=== PATIENT | female | born 1960 | race African-American/Black ===

== ENCOUNTER 2017-04-25 11:58 | Emergency (ER) | payer BC ==
--- NOTE | 2017-04-25 13:15 | ER Document Report ---
ED Respiratory Problem - General Chief Complaint: Congestion Stated Complaint: COUGH,CONGESTION Time Seen by Provider: 04/25/17 13:15 Mode of Arrival: Ambulatory Information source: Patient Notes: 57-year-old female presents to ED for complaint of chest congestion cough. She states she went to the urgent care and they did x-ray and sent her to the emergency room with a disc of her chest x-ray. I have no one to read a disc though chest x-ray was repeated. TRAVEL OUTSIDE OF THE [place] IN LAST 30 DAYS: No - HPI Patient complains to provider of: Cough, Short of breath Onset: Other - Been going on for over a week but it is gotten much worse Duration: Continuous Initiating Event: URI Quality of pain: Achy Severity: Mild Pain Level: 1 Context: denies: Smoker - Former Chest pain/discomfort: Tightness Cough: Nonproductive Sputum amount: None Associated symptoms: Congestion, Cough, Fever, PND, Runny nose Similar symptoms previously: Yes Recently seen / treated by doctor: Yes - Related Data Allergies/Adverse Reactions: Sulfa (Sulfonamide Antibiotics) Allergy (Verified 04/25/17 12:01) Past Medical History - General Information source: Patient - Social History Smoking Status: Former Smoker Cigarette use (# per day): No Chew tobacco use (# tins/day): No Smoking Education Provided: No Frequency of alcohol use: Social Drug Abuse: None Occupation: None Lives with: Alone Family History: Arthritis, Hypertension, Malignancy, Thyroid Disfunction Patient has suicidal ideation: No Patient has homicidal ideation: No - Past Medical History Cardiac Medical History: Reports: None Pulmonary Medical History: Reports: Other - Interstitial lung disease chronic pneumonitis EENT Medical History: Reports: None Neurological Medical History: Reports: None Endocrine Medical History: Reports: Hx Hypothyroidism Renal/ Medical History: Reports: None Malignancy Medical History: Reports: None GI Medical History: Reports: None Musculoskeltal Medical History: Reports Hx Musculoskeletal Deformity, Reports Hx Musculoskeletal Trauma Skin Medical History: Reports None Psychiatric Medical History: Reports: None Traumatic Medical History: Reports: Hx Fractures - Knee Infectious Medical History: Reports: None Past Surgical History: Reports: Hx Orthopedic Surgery - Surgery knee - Immunizations Immunizations up to date: Yes Hx Diphtheria, Pertussis, Tetanus Vaccination: Yes Review of Systems - Review of Systems Constitutional: No symptoms reported EENT: No symptoms reported Cardiovascular: No symptoms reported Respiratory: Cough, Short of breath Gastrointestinal: No symptoms reported Genitourinary: No symptoms reported Female Genitourinary: No symptoms reported Musculoskeletal: No symptoms reported Skin: No symptoms reported Hematologic/Lymphatic: No symptoms reported Neurological/Psychological: No symptoms reported -: Yes All other systems reviewed and negative Physical Exam - Vital signs Vitals: Temp Pulse Resp BP Pulse Ox 98.3 F 102 H 16 159/90 H 99 04/25/17 12:01 04/25/17 12:01 04/25/17 12:01 04/25/17 12:01 04/25/17 12:01 Interpretation: Normal - General General appearance: Appears well, Alert - HEENT Head: Normocephalic, Atraumatic Eyes: Normal Pupils: PERRL - Respiratory Respiratory status: No respiratory distress Chest status: Nontender Breath sounds: Nonproductive cough Chest palpation: Normal - Cardiovascular Rhythm: Regular Heart sounds: Normal auscultation Murmur: No - Abdominal Inspection: Normal Distension: No distension Bowel sounds: Normal Tenderness: Nontender Organomegaly: No organomegaly - Back Back: Normal, Nontender - Extremities General upper extremity: Normal inspection, Nontender, Normal color, Normal ROM , Normal temperature General lower extremity: Normal inspection, Nontender, Normal color, Normal ROM , Normal temperature, Normal weight bearing. No: Fabiana's sign - Neurological Neuro grossly intact: Yes Cognition: Normal Orientation: AAOx4 Lien Coma Scale Eye Opening: Spontaneous [place] Coma Scale Verbal: Oriented Lien Coma Scale Motor: Obeys Commands Lien Coma Scale Total: 15 Speech: Normal Motor strength normal: LUE, RUE, LLE, RLE Sensory: Normal - Psychological Associated symptoms: Normal affect, Normal mood - Skin Skin Temperature: Warm Skin Moisture: Dry Skin Color: Normal Course - Re-evaluation Re-evalutation: 04/25/17 22:[address] Harris and with Dr. Caruso. Dr. Caruso stated that he would see the patient tomorrow. Copy of the chest x-ray sent with patient. Patient sent home with an albuterol inhaler. - Vital Signs Vital signs: Temp Pulse Resp BP Pulse Ox 99.6 F 62 20 124/74 96 04/25/17 16:49 04/25/17 16:49 04/25/17 16:49 04/25/17 16:49 04/25/17 16:49 - Diagnostic Test Radiology reviewed: Image reviewed, Reports reviewed Discharge - Discharge Clinical Impression: Interstitial lung disease, Pneumonitis Condition: Stable Disposition: HOME, SELF-CARE Additional Instructions: Seen today for a cough and shortness of breath. Your x-ray shows chronic interstitial lung disease and chronic pneumonitis. I have discussed these x- rays with you your family and Dr. Caruso. Dr. Caruso said that you could come and see him tomorrow call first thing in the morning to schedule appointment. You will need pulmonology consult for follow-up on your chronic lung disease. Bronchodilators You have received a prescription for a bronchodilator -- a medication which stimulates the airways in the lung to dilate. This improves the flow of air in asthma, bronchitis, and emphysema. These medicines have some similarity to adrenaline, and can cause similar side effects: shakiness, racing heart, and a sense of nervousness. These side effects decrease after you've taken the medicine a day or two. Contact your doctor if these side effects are severe. FOLLOW-UP CARE: If you have been referred to a physician for follow-up care, call the physician s office for an appointment as you were instructed or within the next two days. If you experience worsening or a significant change in your symptoms, notify the physician immediately or return to the Emergency Department at any time for re-evaluation. Forms: Elevated Blood Pressure Referrals: JONATHAN CARUSO MD [Primary Care Provider] - Follow up tomorrow
--- NOTE | 2017-04-25 14:33 | RADIOLOGY REPORT (SQ) ---
EXAM DESCRIPTION: CHEST PA/LAT COMPLETED DATE/TIME: 04/25/2017 1:48 pm REASON FOR STUDY: cough congestion fever COMPARISON: Two-view chest 01/06/2015, 03/20/2011, 10/18/2009 CT chest 04/04/2011 EXAM PARAMETERS: NUMBER OF VIEWS: two views TECHNIQUE: Digital Frontal and Lateral radiographic views of the chest acquired. RADIATION DOSE: NA LIMITATIONS: none FINDINGS: LUNGS AND PLEURA: Diffuse bilateral alveolar and interstitial infiltrates worrisome for at ypical pneumonia or diffuse pneumonitis. This is more prominent than on previous studies. This find ing was called to Sariah in the emergency room. No pleural effusion. No pneumothorax. MEDIASTINUM AND HILAR STRUCTURES: No masses or contour abnormalities. HEART AND VASCULAR STRUCTURES: Heart normal size. No evidence for failure. BONES: No acute findings. HARDWARE: None in the chest. OTHER: No other significant finding. IMPRESSION: Progression of alveolar and interstitial infiltrates compared to multiple previous studi es. Findings are worrisome for chronic pneumonitis or chronic interstitial lung disease. TECHNICAL DOCUMENTATION: JOB ID: [id number] [email or web address]- All Rights Reserved
[2017-04-25] MEDS ORDERED: ALBUTEROL SULFATE HFA (90 MCG/PUFF) 8 GM MDI (1 MDI/ER DISP) IH ONE (16:14)
[2017-04-25 16:51] VITALS: BP 124/74
== END 2017-04-25 16:52 | disposition home or self-care (01) ==
LOC: ER 11:58
DX: J84.9 Interstitial pulmonary disease, unspecified (principal); J18.9 Pneumonia, unspecified organism; E03.9 Hypothyroidism, unspecified; Z88.2 Allergy status to sulfonamides; Z87.891 Personal history of nicotine dependence
CPT/HCPCS: 99283; 71020; J3490

== ENCOUNTER → 2017-05-30 | Outpatient (CLI) | payer BC ==
--- NOTE | 2017-05-30 13:58 | RADIOLOGY REPORT (SQ) ---
EXAM DESCRIPTION: CT CHEST WITH COMPLETED DATE/TIME: 05/30/2017 11:08 am REASON FOR STUDY: BRONCHITIS, NOT SPECIFIED ACUTE OR CHRONIC (J40) J40 BRONCHITIS, NOT SPECIFIED ACUTE OR CHRONIC COMPARISON: CT chest 04/04/2011 TECHNIQUE: CT scan of the chest performed using helical scanning technique with dynamic intravenous contrast injection. Images reviewed with lung, soft tissue and bone windows. Reconstructed coronal and sagittal MPR images reviewed. All images stored on PACS. All CT scanners at this facility use dose modulation, iterative reconstruction, and/or weight based d osing when appropriate to reduce radiation dose to as low as reasonably achievable (ALARA). [facility]: Dose Right [facility]: CareDose [facility]: Dose Right [facility]: Teradose 4D [facility]: [employer] CONTRAST TYPE AND DOSE: contrast/concentration: Isovue 370.00 mg/ml; Total Contrast Delivered: 80.0 ml; Total Saline Delivered: 55.0 ml RENAL FUNCTION: Creatinine 0.7 RADIATION DOSE: Up-to-date CT equipment and radiation dose reduction techniques were employed. CTDIv ol: 2.8 mGy. DLP: 99 mGy-cm. . LIMITATIONS: None. FINDINGS: LUNGS AND PLEURA: Chronic appearing reticulonodular infiltrates are present throughout bot h lungs. These a progressed since 04/04/2011. In the right upper lobe, a bandlike complex opacity is present with focal thickening 2.2 x 1.2 cm in size on axial image 31. There is bandlike thin scarring in the left lower lobe above the hemidiaphra gm. Noncalcified subpleural nodules are present at both bases, similar compared to 2010. Calcified bilat eral lung parenchymal granulomas are also present. No acute infiltrates. No pleural effusion. No pneumothorax. HILAR AND MEDIASTINAL STRUCTURES: Calcified normal size prevascular, right paratracheal, bilateral hi lar, and subcarinal lymph nodes are present. HEART AND VASCULAR STRUCTURES: No aneurysm or dissection. No central pulmonary emboli. No pericardi al effusion. HARDWARE: None in the chest. UPPER ABDOMEN: No significant findings. Limited exam. THYROID AND OTHER SOFT TISSUES: No masses. No adenopathy. BONES: No significant finding. OTHER: No other significant finding. IMPRESSION: Diffuse reticulonodular infiltrates with nodular appearing scarring in the posterior rig ht upper lobe and linear bandlike scarring in the left lower lobe. Findings strongly suggest sarcoid osis or chronic fungal infection/DOROTHY. TECHNICAL DOCUMENTATION: JOB ID: [id number] Quality ID # [id number]: Final reports with documentation of one or more dose reduction techniques (e.g., Au tomated exposure control, adjustment of the mA and/or kV according to patient size, use of iterative reconstruction technique) 2010 [employer]- All Rights Reserved
== END ==
LOC: RAD 09:28
PROVIDERS: ATTEND Internal Medicine
DX: J40 Bronchitis, not specified as acute or chronic (principal)
CPT/HCPCS: 71260; 82565

== ENCOUNTER → 2017-06-12 | Outpatient (CLI) | payer BC ==
[2017-06-12 10:59] LABS: ABSOLUTE BASOPHILS # (AUTO) 0.1 10^3/uL (0.0-0.2); ABSOLUTE EOSINOPHILS # (AUTO) 0.2 10^3/uL (0.0-0.6); ABSOLUTE LYMPHOCYTES (AUTO) 1.4 10^3/uL (0.5-4.7); ABSOLUTE MONOCYTES (AUTO) 0.4 10^3/uL (0.1-1.4); ABSOLUTE NEUT (AUTO) 1.8 10^3/uL (1.7-8.2); BASOPHILS % (AUTO) 1.8 % (0-2); EOSINOPHILS % (AUTO) 4.2 % (0-6); HEMATOCRIT 40.7 % (36.0-47.0); HEMOGLOBIN 13.3 g/dL (12.0-15.5); HGB HCT DIFFERENCE -0.8; LYMPHOCYTES % (AUTO) 36.2 % (13-45); MEAN CORPUSCULAR HEMOGLOBIN 29.1 pg (27.0-33.4); MEAN CORPUSCULAR HGB CONC 32.7 g/dL (32.0-36.0); MEAN CORPUSCULAR VOLUME 89 fl (80-97); MONOCYTES % (AUTO) 9.9 % (3-13); RED BLOOD COUNT 4.58 10^6/uL (3.72-5.28); RED CELL DISTRIBUTION WIDTH 13.2 % (11.5-14.0); SEGMENTED NEUTROPHILS % (AUTO) 47.9 % (42-78); WHITE BLOOD COUNT 3.8 10^3/uL (4.0-10.5)
[2017-06-12 11:01] LABS: PROTHROMBIN TIME 14.3 SEC (11.4-15.4)
[2017-06-12 11:02] LABS: PARTIAL THROMBOPLASTIN TIME 27.1 SEC (23.5-35.8)
[2017-06-12 12:07] LABS: ANION GAP 11 (5-19); BLOOD UREA NITROGEN 16 mg/dL (7-20); CALCIUM 10.6 mg/dL (8.4-10.2); CARBON DIOXIDE 22 mmol/L (22-30); CHLORIDE 106 mmol/L (98-107); CREATININE RESULT 0.74 mg/dL (0.52-1.25); GLUCOSE 86 mg/dL (75-110); POTASSIUM 4.4 mmol/L (3.6-5.0)
== END ==
LOC: OD 09:37
PROVIDERS: ATTEND Internal Medicine Critical Care Medicine
DX: J84.9 Interstitial pulmonary disease, unspecified (principal); R91.1 Solitary pulmonary nodule; R91.8 Other nonspecific abnormal finding of lung field; J45.909 Unspecified asthma, uncomplicated
CPT/HCPCS: 36415; 80048; 85025; 85610; 85730

== ENCOUNTER 2017-06-13 08:17 | Day surgery (SDC) | payer BC ==
--- NOTE | 2017-06-13 09:07 | RADIOLOGY REPORT (SQ) ---
EXAM DESCRIPTION: CHEST SINGLE VIEW COMPLETED DATE/TIME: 06/13/2017 8:57 am REASON FOR STUDY: PRE OP RM HOLDING2 COMPARISON: Chest CT scan dated 05/30/2017 EXAM PARAMETERS: NUMBER OF VIEWS: One view. TECHNIQUE: Single frontal radiographic view of the chest acquired. RADIATION DOSE: NA LIMITATIONS: None. FINDINGS: LUNGS AND PLEURA: Somewhat ill-defined reticular nodular densities are identified with sli ghtly more confluent densities in the right upper lung field. This correlates with the findings on t he recent chest CT scan. No acute consolidations or pleural effusions are identified. MEDIASTINUM AND HILAR STRUCTURES: No masses. Contour normal. HEART AND VASCULAR STRUCTURES: Heart normal in size. Normal vasculature. BONES: No acute findings. HARDWARE: None in the chest. OTHER: No other significant finding. IMPRESSION: Somewhat ill-defined reticular nodular densities are identified with slightly more confl uent densities in the right upper lung field. This correlates with the findings on the recent chest CT scan. No acute consolidations or pleural effusions are identified. Differential possibilities ar e as previously stated. Clinical correlation is recommended. Other findings as noted above. TECHNICAL DOCUMENTATION: JOB ID: [id number]
[2017-06-13] MEDS ORDERED: LIDOCAINE 2% INJ (20 MG/ML) 20 ML MDV ONE (09:51)
[2017-06-13] MEDS ORDERED: EPINEPHRINE INJ/PF 1 MG/1 ML AMPULE ONE (09:51)
[2017-06-13] MEDS ORDERED: LIDOCAINE 2% JELLY 30 ML TUBE ONE (09:51)
[2017-06-13] MEDS ORDERED: NALOXONE HCL INJ/PF 0.4 MG/1 ML SDV ONE (09:52)
[2017-06-13] MEDS ORDERED: FLUMAZENIL INJ 0.5 MG/5 ML VIAL IV ONE (09:53)
[2017-06-13] MEDS ORDERED: EPINEPHRINE INJ 1 MG/10 ML DISP.SYRIN ONE (09:53)
[2017-06-13 09:59] LABS: CREATINE KINASE MB < 0.22 ng/mL (<4.55); TROPONIN I < 0.012 ng/mL
[2017-06-13] MEDS: MIDAZOLAM 2 MG/2 ML INJ ONE ×10 (11:02→11:22)
[2017-06-13] MEDS: FENTANYL CITRATE INJ/PF 100 MCG/2 ML AMPUL ONE ×4 (11:07→11:20)
--- NOTE | 2017-06-13 12:30 | RADIOLOGY REPORT (SQ) ---
EXAM DESCRIPTION: CHEST SINGLE VIEW COMPLETED DATE/TIME: 06/13/2017 12:12 pm REASON FOR STUDY: PRE OP COMPARISON: 06/13/2017 EXAM PARAMETERS: NUMBER OF VIEWS: One view. TECHNIQUE: Single frontal radiographic view of the chest acquired. RADIATION DOSE: NA LIMITATIONS: None. FINDINGS: LUNGS AND PLEURA: The previously described somewhat ill-defined reticular nodular densitie s with slightly more confluent densities in the right upper lung feel are again identified and appear s stable. No acute consolidations or pleural effusions are identified. MEDIASTINUM AND HILAR STRUCTURES: No masses. Contour normal. HEART AND VASCULAR STRUCTURES: Heart normal in size. Normal vasculature. BONES: No acute findings. HARDWARE: None in the chest. OTHER: No other significant finding. IMPRESSION: No significant interval change. Findings as noted above TECHNICAL DOCUMENTATION: JOB ID: [id number]
--- NOTE | 2017-06-13 12:49 | OPERATIVE REPORT E ---
Operative Report NAME: SHANNA DAVIDSON : 1960 AGE: 57Y DATE OF SURGERY: ROOM: PREOPERATIVE DIAGNOSES: Interstitial lung disease; pulmonary infiltrates bilateral; pulmonary nodule about 2.2 x 2.4 cm right upper lobe posterior segment; pulmonary infiltrates in the right upper lobe; possible atypical mycobacterial infection versus sarcoidosis versus malignancy right upper lobe. FINDINGS: No endobronchial lesions noted. Vocal structures appeared normal. Trachea is normal. Marion sharp and at midline. No endobronchial lesions noted on both segmental airways. OPERATION: Flexible bronchoscopy with bronchial washing, bronchoalveolar lavage on the 1. right upper lobe anterior segment; 2. right upper lobe apical segment; and 3. right middle lobe; transbronchial lung biopsy right upper lobe posterior segment. SURGEON: ALLYN NY M.D. INTRAOPERATIVE AND POSTOPERATIVE COMPLICATIONS: None at this time. ESTIMATED BLOOD LOSS: About 1 or 2 mL. TISSUE REMOVED OR ALTERED: 1. Bronchoalveolar lavage specimens from the right upper lobe anterior segment; right upper lobe apical segment; right middle lobe. 2. Transbronchial lung biopsy specimen from the right upper lobe posterior segment. PROCEDURE: Consent was obtained from the patient. Patient verbalized understanding of the indications, reason for the procedure, and potential complications of the procedure. Patient was connected to the tape sewer, pulse oximetry, blood pressure monitor, and respiratory monitor; 2% lidocaine solution 5 mL was given via nebulizer; 2% lidocaine solution 3 mL was given via atomizer; 2% lidocaine gel was applied to the posterior pharyngeal area. Mouth gag was placed on the patient, and the flexible bronchoscope was inserted into the mouth. Vocal cords were visualized and appeared normal; 1% lidocaine solution in 3 mL aliquots were applied on the vocal cords and trachea, marion, right mainstem bronchus, left mainstem bronchus and subsequent segmental airways. No lesions noted on the vocal cords and oropharyngeal area, trachea, marion, right mainstem bronchus, left mainstem bronchus and segment bronchi. Bronchial washing was performed of the right upper lobe, right lower lobe, left upper lobe, and left lower lobe. Bronchoalveolar lavage was performed on the right upper lobe anterior segment, right upper lobe apical segment, and the right middle lobe. Bronchoalveolar lavage specimen was sent for microbiology and cytology. Transbronchial lung biopsy was performed on the right upper lobe posterior segment x 2. Patient tolerated the procedure. Chest x-ray was performed ff the bronchoscopy showed absence of pneumothorax. Pulmonary clinic followup will be scheduled in 1 or 2 weeks, or sooner if needed. DICTATING PHYSICIAN: ALLYN NY MD,SAWYER,MPH [id number] PHY#: [id number] ID: [id number] JOB#: [id number] ACCT: [id number] cc:ALLYN NY M.D. > [facility]
[2017-06-13 13:26] VITALS: BP 102/72
--- NOTE | 2017-06-14 05:55 | EKG REPORT ---
SEVERITY:- ABNORMAL ECG - SINUS RHYTHM LEFT ATRIAL ABNORMALITY ANTERIOR Q WAVES, POSSIBLY DUE TO LVH : Confirmed by: Monique Ba MD 14-Jun-2017 05:55:15
== END 2017-06-13 13:20 | disposition home or self-care (01) ==
LOC: OMH.OR.ALL 08:17
PROVIDERS: ATTEND Internal Medicine Critical Care Medicine
PROC: 0BB58ZX Excision of Right Middle Lobe Bronchus, Via Natural or Artificial Opening Endoscopic, Diagnostic (ICD-10-PCS; 2017-06-13)
PROC: 0B948ZX Drainage of Right Upper Lobe Bronchus, Via Natural or Artificial Opening Endoscopic, Diagnostic (ICD-10-PCS; principal; 2017-06-13 10:00)
PROC: 0BB48ZX Excision of Right Upper Lobe Bronchus, Via Natural or Artificial Opening Endoscopic, Diagnostic (ICD-10-PCS; 2017-06-13 10:00)
DX: R91.1 Solitary pulmonary nodule (principal); J84.9 Interstitial pulmonary disease, unspecified; R91.8 Other nonspecific abnormal finding of lung field; B95.61 Methicillin susceptible Staphylococcus aureus infection as the cause of diseases classified elsewhere; E03.9 Hypothyroidism, unspecified; Z79.899 Other long term (current) drug therapy; Z79.51 Long term (current) use of inhaled steroids; Z87.891 Personal history of nicotine dependence
CPT/HCPCS: 31625; 31624; 36415; 87070; 87205; 87206; 87116; 87101; 82553; 82550; 87077; 84484; 87186; 87015; 88162; 88104 ×2; 88305 ×2; 88312 ×2; 71010; 93005; 93010; J2250; J3490; J0171; J3010; J2310

== ENCOUNTER → 2018-05-12 | Outpatient (CLI) | payer MEDICAID ==
--- NOTE | 2018-05-12 16:49 | RADIOLOGY REPORT (SQ) ---
EXAM DESCRIPTION: CT CHEST WITHOUT COMPLETED DATE/TIME: 05/12/2018 1:21 pm REASON FOR STUDY: PULMONARY NODULE (R91.1) R91.1 SOLITARY PULMONARY NODULE COMPARISON: 05/30/2017 TECHNIQUE: CT scan performed of the chest without intravenous contrast. Images reviewed with lung, soft tissue and bone windows. Reconstructed coronal and sagittal MPR images reviewed. All images st ored on PACS. All CT scanners at this facility use dose modulation, iterative reconstruction, and/or weight based d osing when appropriate to reduce radiation dose to as low as reasonably achievable (ALARA). [facility]: Dose Right [facility]: CareDose [facility]: Dose Right [facility]: Teradose 4D [facility]: [employer] RADIATION DOSE: CT Rad equipment meets quality standard of care and radiation dose reduction techniq ues were employed. CTDIvol: 3.0 mGy. DLP: 108 mGy-cm. mGy. LIMITATIONS: No technical limitations. FINDINGS: LUNGS AND PLEURA: Chronic pleural and parenchymal scarring, predominantly in the right upp er lobe and left lower lobe. No new pulmonary nodules are present. No pleural effusion is present. HILAR AND MEDIASTINAL STRUCTURES: Calcified mediastinal and hilar nodes. HEART AND VASCULAR STRUCTURES: No aneurysm. No pericardial effusion. UPPER ABDOMEN: No significant findings. Limited exam. THYROID AND OTHER SOFT TISSUES: No masses. No adenopathy. BONES: No significant finding. HARDWARE: None in the chest. OTHER: No other significant findings. IMPRESSION: Pleural/parenchymal scarring with calcified mediastinal and hilar lymph nodes. No signi ficant interval change. TECHNICAL DOCUMENTATION: JOB ID: [id number] Quality ID # [id number]: Final reports with documentation of one or more dose reduction techniques (e.g., Au tomated exposure control, adjustment of the mA and/or kV according to patient size, use of iterative reconstruction technique) 2010 [employer]- All Rights Reserved Reading location - IP/workstation name: [email or web address]
== END ==
LOC: RAD 13:08
PROVIDERS: ATTEND Internal Medicine Critical Care Medicine
DX: R91.1 Solitary pulmonary nodule (principal)
CPT/HCPCS: 71250

== ENCOUNTER → 2018-05-12 | Outpatient (CLI) | payer MEDICAID ==
[2018-05-12 13:47] LABS: ABSOLUTE BASOPHILS # (AUTO) 0.1 10^3/uL (0.0-0.2); ABSOLUTE EOSINOPHILS # (AUTO) 0.1 10^3/uL (0.0-0.6); ABSOLUTE MONOCYTES (AUTO) 0.5 10^3/uL (0.1-1.4); ABSOLUTE NEUT (AUTO) 4.2 10^3/uL (1.7-8.2); BASOPHILS % (AUTO) 1.9 % (0-2); EOSINOPHILS % (AUTO) 1.6 % (0-6); HEMATOCRIT 45.9 % (36.0-47.0); HEMOGLOBIN 15.3 g/dL (12.0-15.5); LYMPHOCYTES % (AUTO) 28.6 % (13-45); MEAN CORPUSCULAR HEMOGLOBIN 30.6 pg (27.0-33.4); MEAN CORPUSCULAR HGB CONC 33.5 g/dL (32.0-36.0); MEAN CORPUSCULAR VOLUME 92 fl (80-97); MONOCYTES % (AUTO) 6.9 % (3-13); PLATELET COUNT 324 10^3/uL (150-450); RED BLOOD COUNT 5.01 10^6/uL (3.72-5.28); RED CELL DISTRIBUTION WIDTH 14.1 % (11.5-14.0); TOTAL CELLS COUNTED % (AUTO) 100 %; WHITE BLOOD COUNT 6.8 10^3/uL (4.0-10.5)
[2018-05-12 14:05] LABS: ALANINE AMINOTRANSFERASE 12 U/L (9-52); ALBUMIN 4.6 g/dL (3.5-5.0); ALKALINE PHOSPHATASE 70 U/L (38-126); ANION GAP 11 (5-19); ASPARTATE AMINO TRANSFERASE 17 U/L (14-36); BILIRUBIN,DIRECT 0.3 mg/dL (0.0-0.4); BILIRUBIN,TOTAL 0.5 mg/dL (0.2-1.3); BLOOD UREA NITROGEN 18 mg/dL (7-20); C-REACTIVE PROTEIN 13.4 mg/L (<10.0); CARBON DIOXIDE 26 mmol/L (22-30); CHLORIDE 106 mmol/L (98-107); GLUCOSE 88 mg/dL (75-110); POTASSIUM 4.6 mmol/L (3.6-5.0); SODIUM 143.4 mmol/L (137-145); TOTAL PROTEIN 8.2 g/dL (6.3-8.2)
[2018-05-12 14:25] LABS: ERYTHROCYTE SEDIMENTATION RATE 18 mm/hr (0-30)
== END ==
LOC: LAB 13:25
PROVIDERS: ATTEND Internal Medicine Critical Care Medicine
DX: D86.0 Sarcoidosis of lung (principal); R91.8 Other nonspecific abnormal finding of lung field; R63.4 Abnormal weight loss; R91.1 Solitary pulmonary nodule
CPT/HCPCS: 36415; 80053; 85025; 85652; 86038; 86140; 86430

== ENCOUNTER → 2019-05-20 | Outpatient (CLI) | payer MEDICARE, MEDICAID ==
--- NOTE | 2019-05-20 11:30 | WOMENS IMAGING REPORT ---
EXAM DESCRIPTION: BONE DENSITY HIP/SPINE COMPLETED DATE/TIME: 05/20/2019 10:01 am REASON FOR STUDY: Z79.52 [employer] (CURRENT) USE OF SYSTEMIC STEROIDS Z79.52 [facility] (CURRENT) US E OF SYSTEMIC STEROIDS COMPARISON: None. TECHNIQUE: Dual-Energy X-ray Absorptiometry (DEXA) of the AP Spine and Hip. LIMITATIONS: None. FINDINGS: LUMBAR SPINE: The bone mineral density (BMD) measured from L1-L4 in the AP projection correlates with a T-score of -2.3, which is osteopenia as defined by the World Health Organization. HIP: The bone mineral density (BMD) measured in the left hip correlates with a T-score of -3.1 in the femo ral neck, which is osteoporosis as defined by the World Health Organization. IMPRESSION: 1. LUMBAR SPINE: Osteopenia 2. HIP: Osteoporosis COMMENT: The World Health Organization defines low BMD as follows: T-score: Normal: Greater than -1.0 Osteopenia: Between -1.0 and -2.5 Osteoporosis: Less than -2.5 without fractures Established osteoporosis: Less than -2.5 with fractures In general, you may wish to consider: Diagnosis Treatment Follow-up DEXA Normal BMD Prevention 2-3 years Osteopenia Prevention/Therapy 1-2 years Osteoporosis Therapy Yearly TECHNICAL DOCUMENTATION: JOB ID: [id number]- All Rights Reserved Reading location - IP/workstation name: [email or web address]
== END ==
LOC: WI 09:42
PROVIDERS: ATTEND Internal Medicine
DX: Z79.52 Long term (current) use of systemic steroids (principal)
CPT/HCPCS: 77080